=== PATIENT | male | born 1955 | race Caucasian/White ===

== ENCOUNTER → 2021-03-18 | Outpatient (CLI) | payer BC ==
[~2021-03-18] MED LIST: ASPIRIN EC81 MG PO; GLUCOTROL5 MG PO; HABITROL 14 MG P1 EA TD; LIPITOR TAB 2020 MG PO; LISINOPRIL20 MG PO; METFORMIN HCL500 MG PO; NORCO 7.5-3251 EACH PO; NORVASC 5 MG TAB5 MG PO; PANTOPRAZOLE SO40 MG PO; PROMETHAZINE HC25 M1 PO; VITAMIN D250000 UNIT PO
[2021-03-18 08:47] LABS: HEMOGLOBIN 13.1 gm/dl (14.0-17.5); RED BLOOD COUNT 4.14 M/UL (4.20-5.50); WHITE BLOOD COUNT 6.7 K/UL (4.5-11.0)
[2021-03-18 09:15] LABS: BUN/CREATININE RATIO 19 (0-10)
== END ==
LOC: CT 08:21
PROVIDERS: Internal Medicine Hematology & Oncology
DX: C16.6 Malignant neoplasm of greater curvature of stomach, unspecified (principal); C77.2 Secondary and unspecified malignant neoplasm of intra-abdominal lymph nodes; F17.211 Nicotine dependence, cigarettes, in remission
CPT/HCPCS: 36415; 80053; 85027; Q9967

== ENCOUNTER → 2021-09-22 | Day surgery (SDC) | payer BC ==
[~2021-09-22] MED LIST changes: +PROTONIX 40 MG40 M1 PO
== END | disposition home or self-care (01) ==
LOC: OR 06:32
DX: Z12.11 Encounter for screening for malignant neoplasm of colon (principal); K63.5 Polyp of colon; K64.0 First degree hemorrhoids; K64.1 Second degree hemorrhoids; E11.9 Type 2 diabetes mellitus without complications; E78.00 Pure hypercholesterolemia, unspecified; I10 Essential (primary) hypertension; E66.3 Overweight; Z68.30 Body mass index [BMI] 30.0-30.9, adult; Z86.010 Personal history of colon polyps; Z85.038 Personal history of other malignant neoplasm of large intestine; Z20.822 Contact with and (suspected) exposure to COVID-19; Z98.0 Intestinal bypass and anastomosis status
CPT/HCPCS: 82962; J2704; J7040

== ENCOUNTER → 2022-03-23 | Outpatient (CLI) | payer BC ==
[2022-03-23 07:48] LABS: HEMOGLOBIN 12.4 gm/dl (14.0-17.5); RED BLOOD COUNT 4.3 M/UL (4.20-5.50); WHITE BLOOD COUNT 5.6 K/UL (4.5-11.0)
[2022-03-23 08:09] LABS: BUN/CREATININE RATIO 19 (0-10)
== END ==
LOC: CT 07:06
PROVIDERS: Internal Medicine Hematology & Oncology
DX: C16.6 Malignant neoplasm of greater curvature of stomach, unspecified (principal); C77.2 Secondary and unspecified malignant neoplasm of intra-abdominal lymph nodes; F17.211 Nicotine dependence, cigarettes, in remission
CPT/HCPCS: 36415; 80053; 82378; 85027; Q9967